=== PATIENT | female | born 1990 | race American Indian/Alaskan Native ===

== ENCOUNTER 2018-12-30 10:46 | Emergency (ER) | payer MEDICAID, OTHER ==
[2018-12-30] MEDS ORDERED: DELTASONE PO ONE (12:29)
[2018-12-30] MEDS ORDERED: ROBITUSSIN PO ONE (12:29)
--- NOTE | 2018-12-30 12:34 | Emergency Department Report ---
Minor Respiratory - HPI Chief Complaint: Upper Respiratory Infection Stated Complaint: SOB/FLU LIKE SYM Time Seen by Provider: 12/30/18 11:57 Duration: 3 Days Pain Location: Nose, Chest (congestion) Severity: mild Minor Respiratory: Yes Able to Tolerate Fluids, Yes Cough (mucus), Yes Sick Contacts (daughter), No Rhinorrhea, No Sore Throat, No Ear Pain, No Hemoptysis, No Chest Pain, No Shortness of Breath, No Fever Other History: This is a 28-year-old female who presents to ED complaining generalized body aches cough and congestion for the past couple of days. She states that her daughter was sick recently had a cold. Patient denies any history of asthma denies taking any medications prior to arrival. She denies shortness of breath, fever, nausea vomiting or any other problems ED Review of Systems ROS: Stated complaint: SOB/FLU LIKE SYM Other details as noted in HPI Comment: All other systems reviewed and negative ED Past Medical Hx - Past Medical History Previous Medical History?: No Hx Hypertension: No Hx Diabetes: No Hx Deep Vein Thrombosis: No Hx Renal Disease: No Hx Sickle Cell Disease: No Hx Seizures: No Hx Asthma: No Hx HIV: No - Surgical History Past Surgical History?: Yes Additional Surgical History: c section. hysterectomy - Social History Smoking Status: Never Smoker Substance Use Type: None - Medications Home Medications: Home Medications Medication Instructions Recorded Confirmed Last Taken Type Vit Calc,Iron,Folic 1 each PO DAILY 11/17/15 11/17/15 11/15/15 09:00 History [ Vitamins] 1 HYDROcodone/APAP 7.5-325 [[place] 1 each PO Q8HR PRN #14 tablet 07/01/16 Unknown Rx 7.5-325 mg TAB] Ondansetron [Zofran TAB] 4 mg PO Q8HR PRN #14 tablet 07/01/16 Unknown Rx levoFLOXacin [Levaquin] 750 mg PO QDAY #10 tablet 07/01/16 Unknown Rx Azithromycin [Zithromax TAB] 500 mg PO QDAY #5 tablet 12/30/18 Unknown Rx Ibuprofen [Motrin 800 MG tab] 800 mg PO Q8HR PRN #14 tablet 12/30/18 Unknown Rx guaiFENesin [Mucinex] 600 mg PO BID #20 tab.er.12h 12/30/18 Unknown Rx Minor Respiratory Exam - Exam General: Vital signs noted. No distress. Alert and acting appropriately. HEENT: Yes Moist Mucous Membranes, No Pharyngeal Erythema, No Pharyngeal Exudates, No Rhinorrhea, No Conjuctival Injection, No Frontal Tenderness, No Maxillary Tenderness Ear: Neither TM Bulge, Neither TM Erythema, Neither EAC Pain, Neither EAC Discharge Neck: Yes Supple, No Adenopathy Lungs: Yes Good Air Exchange, No Wheezes, No [place], No Stridor, No Cough, No Labored Respirations, No Retractions, No Use of Accessory Muscles, No Other Abnormal Lung Sounds Heart: Yes Regular, No Murmur Abdomen: Yes Normal Bowel Sounds, No Tenderness, No Peritoneal Signs Skin: No Rash, No Edema Neurologic: Alert and oriented, no deficits. Musculoskeletal: Unremarkable. ED Course Vital Signs 12/30/18 10:53 Temperature 98.5 F Pulse Rate 94 H Blood Pressure 111/71 ED Medical Decision Making - Medical Decision Making [id number]-year-old presents with upper respiratory infection. Vital signs are normal patient has no acute distress. Patient slightly tachycardic. Antibiotics given for prophylaxis treatment. Discussed the patient to follow up with primary care physician. Patient has no respiratory distress Critical care attestation.: If time is entered above; I have spent that time in minutes in the direct care of this critically ill patient, excluding procedure time. ED Disposition Clinical Impression: Upper respiratory infection Disposition: -01 TO HOME OR SELFCARE Is pt being admited?: No Does the pt Need Aspirin: No Condition: Stable Instructions: Viral Syndrome (ED), Cold Symptoms (ED), Upper Respiratory Infection (ED) Additional Instructions: Make sure to follow up with the primary care physician as discussed. Take all your medications as you've been prescribed. If you have any worsening symptoms or develop new symptoms please return to ED immediately. Prescriptions: Ibuprofen [Motrin 800 MG tab] 800 mg PO Q8HR PRN #14 tablet PRN Reason: Pain guaiFENesin [Mucinex] 600 mg PO BID #20 tab.er.12h Azithromycin [Zithromax TAB] 500 mg PO QDAY #5 tablet Referrals: [facility] [Outside] - 3-5 Days [facility] [Outside] - 3-5 Days Forms: Accompanied Note, Work/School Release Form(ED) Time of Disposition: 12:40
[2018-12-30 13:02] VITALS: BP 110/70
== END 2018-12-30 12:55 | disposition home or self-care (01) ==
LOC: ED 10:46
DX: J06.9 Acute upper respiratory infection, unspecified (principal); Z90.710 Acquired absence of both cervix and uterus
CPT/HCPCS: 99282; J7512